=== PATIENT | female | born 1995 | race African-American/Black ===

== ENCOUNTER 2018-05-17 18:55 | Emergency (ER) | payer OTHER ==
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
== END 2018-05-17 19:29 | disposition home or self-care (01) ==
LOC: JD.ED 18:55 → EDBD 18:55 → JD.ED 19:29
DX: Z04.1 Encounter for examination and observation following transport accident (principal)
CPT/HCPCS: 99284-25